=== PATIENT | male | born 1965 | race Caucasian/White ===

== ENCOUNTER → 2017-04-14 | Outpatient (CLI) | payer BC, OTHER ==
--- NOTE | 2017-04-14 16:53 | CONS ---
CONSULTATION This patient is a 51-year-old gentleman who has been evaluated in the sleep center by referral of [facility] for possibility of obstructive sleep apnea-hypopnea syndrome. HISTORY OF PRESENT ILLNESS/SLEEP-WAKE EVALUATION: Patient's usual sleep schedule on weekdays is from 9 p.m. to 5:30 a.m., on weekends from 10 p.m. to 7 a.m. No problem with falling asleep, although he has a TV set in the bedroom. He sleeps with his , and according to her he has mild snoring. He wakes up from sleep once with nocturia. He denied sleepiness during the day. Wink Sleepiness Scale is 3. He does not take any naps during the day. PAST MEDICAL HISTORY: 1. Hypertension. 2. Hypothyroidism. 3. Gout. 4. Hyperlipidemia. PAST SURGICAL HISTORY: 1. Tonsillectomy. 2. Vasectomy. MEDICATIONS: 1. Fenofibrate. 2. Lisinopril. 3. Levothyroxine. 4. Allopurinol. SOCIAL HISTORY: Negative for smoking. Alcohol consumption rarely. FAMILY HISTORY: Hypertension, hyperlipidemia, cancer. REVIEW OF SYSTEMS: Awakenings from sleep with nocturia. Mild snoring. . PHYSICAL EXAMINATION: A 51-year-old gentleman without distress. VITAL SIGNS: BP 147/87, HR 89, RR 16, height 5 feet 11 inches, weight 238.4, BMI 33.1. Neck wide; 18 inches in circumference. Temperature 98.8. HEENT: PERRLA, EOMI. Evaluation of oropharynx showed tongue protrudes midline; moderately low position of soft palate. NECK: Supple. No JVD. Thyroid is not palpable. LUNGS: Clear to percussion and to auscultation. Good air exchange. No wheezing or rhonchi. HEART: S1, S2 irregularly irregular. ABDOMEN: Obese. EXTREMITIES: No clubbing or cyanosis. WEIGHT LOSS SALES CONSULTANT: Awake, alert and oriented x3. Cranial nerves 2 to 7 intact. There is no fasciculation or atrophy noted. No focal deficits observed. IMPRESSION: 1. Snoring, awakenings from sleep once with nocturia, moderately low position of soft palate, wide neck; possible obstructive sleep apnea-hypopnea syndrome. 2. Obesity; BMI 33.1. 3. Hypertension. 4. Hypothyroidism. 5. History of gout. 6. Hyperlipidemia. 7. Status post tonsillectomy. 8. Status post vasectomy. PLAN: 1. Sleep study for evaluation of patient's breathing during sleep. 2. CPAP treatment if sleep study shows any abnormalities of respiration. 3. Losing weight. 4. Sleep hygiene with regular time in bed for at least 8 hours. 5. Precautions related to driving. No driving if feeling any sleepiness. Patient is aware of civil and criminal liability for unsafe driving. Thank you very much for referring this patient for consultation. Sincerely, Jon Lawrence MD, PhD, FAASM Diplomat of [place] [employer] [place] [employer] of [facility] [place] MMODL / IJN: [id number] /
== END ==
LOC: SLEEP 14:16
PROVIDERS: ATTEND Internal Medicine
DX: E66.9 Obesity, unspecified (principal); I10 Essential (primary) hypertension; E03.9 Hypothyroidism, unspecified; M10.9 Gout, unspecified; E78.5 Hyperlipidemia, unspecified; Z90.89 Acquired absence of other organs; Z79.899 Other long term (current) drug therapy; Z68.33 Body mass index [BMI] 33.0-33.9, adult
CPT/HCPCS: 99211

== ENCOUNTER → 2020-03-25 | Outpatient (CLI) | payer OTHER ==
--- NOTE | 2020-03-25 13:59 | XR ---
Left foot and left ankle HISTORY: Trauma and pain 3 views of the left foot and 3 views of the left ankle Degenerative changes present at the first metatarsophalangeal joint. Bone mineralization and alignmen t are maintained. There is soft tissue swelling present. Plantar calcaneal spur is noted incidentally . Small ossific density distal to the medial malleolus is well-corticated and not felt likely to be a cute. IMPRESSION: Soft tissue swelling. No acute fracture or dislocation. Plantar calcaneal spur.
== END | disposition home or self-care (01) ==
LOC: RADXRMAIN 12:58
PROVIDERS: ATTEND Emergency Medicine
DX: M77.32 Calcaneal spur, left foot (principal); M79.89 Other specified soft tissue disorders